=== PATIENT | male | born 1985 | race Caucasian/White ===

== ENCOUNTER 2017-01-11 19:27 | Emergency (ER) | payer MEDICAID ==
[~2017-01-11] VITALS: Ht 182.9 cm; Wt 78.5 kg
[2017-01-11 19:41] VITALS: Ht 182.9 cm; Wt 78.5 kg
--- NOTE | 2017-01-11 20:26 | ERD ---
ER Documentation Chief Complaint Date/Time DATE: 01/11/17 TIME: 20:21 Chief Complaint fever and CHARLETTE foot swelling x 3 days. +cough, runny nose HPI 31-year-old male who presents emergency department for multiple complaints including productive cough and congestion for about 3 days. Also complains of bilateral lower extremity nontraumatic swelling and pain that is increased in about a week. Denies headache, loss of consciousness, dizziness, blurry vision, changes in vision, photophobia, facial pain, ear pain, throat pain, difficulty swallowing, neck pain, shoulder pain, chest pain,hemoptysis, abdominal pain, back pain, loss of appetite, nausea, vomiting, hematochezia, diarrhea, constipation, urinary symptoms, bladder and bowel incontinences, extremity weakness, numbness or tingling sensation, difficulty walking, recent travel, recent exposure to illness, recent antibiotic use in the last 3 months. Allergy: Penicillin. PMH: Denies. Medications: Denies. Surgery: Denies. Family history: Denies. Primary Social History: Not working at this time. Denies smoking, use of alcohol, use of illegal drugs. ROS All systems reviewed and are negative except as per history of present illness. Allergies Allergies: Coded Allergies: No Known Allergy (Unverified , 01/11/17) PMhx/Soc Medical and Surgical Hx: pt denies Medical Hx, pt denies Surgical Hx Hx Alcohol Use: Yes (SOCIALLY) Hx Substance Use: No Hx Tobacco Use: No Smoking Status: Never smoker Physical Exam Vitals Vital Signs Date Time Temp Pulse Resp B/P Pulse Ox O2 Delivery O2 Flow Rate FiO2 01/11/17 19:41 97.6 96 20 118/69 98 Physical Exam CONSTITUTIONAL: Well-appearing; well-nourished; in no apparent distress. HEAD: Normocephalic; atraumatic. EYES: Conjunctiva clear, sclera non-icteric, EOM intact. PERRL Ears: Hearing intact. EACs clear, TMs non-bulging, non-inflamed, translucent & mobile, ossicles normal appearance, No obstructions, no erythema, no discharges Nose: No obstructions. No polyps. No external lesions. Mucosa non-inflamed. No external lesions, septum and turbinates normal. No rhinorrhea. No discharges. Frontal sinus is non-tender to palpation. Maxillary sinus is non-tender to palpation. MOUTH: Moist mucous membranes, no lesion, no obstructions, no vesicles, no thrush, patent airway Throat: Uvula in midline. Right tonsil is +1 with no erythema, no exudate. Left tonsil is +1 with no erythema, no exudate. Tolerating secretions well. Good gag reflex. Patent airway. Neck: Supple, without lesions, bruits, or adenopathy. No mass. Thyroid non- enlarged and non-tender to palpation. CHEST: Symmetrical chest. Respirations even and not labored. No retractions noted. CARDIOVASCULAR: Normal S1, S2. RRR. No murmurs, gallops. RESPIRATORY: Normal chest excursion with respiration; breath sounds clear and equal bilaterally; no wheezes, rhonchi, or rales. Breathing even and unlabored. Speaking in clear, full, and complete sentences w/ ease. ABDOMEN: Normal bowel sounds normal. Soft, round, non-distended, non-guarding, no tenderness, no rebound, no organomegaly, no masses, no pulsating abdominal mass. No hernia. No peritoneal signs. : No CVA tenderness. BACK: Symmetrical shoulder. Spine is midline without deformity, tenderness. No evidence of trauma or deformity. PELVIS: Stable pelvis. No evidence of trauma or deformity. MUSCULOSKELETAL: Normal gait and station. No misalignment, asymmetry, crepitation, defects, tenderness, masses, effusions, decreased range of motion, instability, atrophy or abnormal strength or tone in the head, neck, spine, ribs , pelvis or extremities. Bilateral lower extremity nonpitting edema and tenderness bilaterally with mild redness. Bilateral hips are unremarkable and stable. Bilateral knees/ankle/foot has no obvious deformity with good and full range of motion. Circulation and sensation is intact. No neurovascular deficits. NEUROVASCULAR: Distal pulses are present. Pedal pulse are present, equal, and normal. Capillary refills are < 2 seconds. NEUROLOGIC: Alert and oriented x4. Speaks full and clear sentences. Cranial Nerves II-XII normal. Sensation to pain, touch, and proprioception normal. Grossly unremarkable. No neurologic deficits. Romberg test is negative. PSYCHOLOGICAL: The patients mood and manner are appropriate. No hallucinations , delusions. Not SI. Not HI. Has the capacity to decide for self SKIN: Normal for age and ethnicity; warm; dry; good turgor; no apparent lesions or exudates. No rashes, hives, discoloration. Intact. Procedures/MDM Examination: Please see physical examination. Disease process, medical treatment was explained to the patient and family member. They verbalized understanding and agreed with the diagnostic tests, medical treatment, and follow-up care. Radiology: X-ray of the chest Impression: No acute cardiopulmonary abnormality. Ultrasound of the venous lower extremity bilaterally Impression: No evidence of deep vein thrombosis in the lower extremities bilaterally. Re-evaluation: Denies headache, dizziness, blurry vision, neck pain, shoulder pain, chest pain, back pain, abdominal pain, nausea, vomiting. No episode of emesis in the emergency department. Alert and oriented 4. Speaks full and clear sentences. Respirations even and unlabored. Lung sounds clear to auscultation. Active bowel sounds. Ambulatory with steady gait. No neurovascular deficits. No neurological deficits. Consultation: None. Differential diagnosis: Deep vein thrombosis versus cellulitis versus congestive heart failure versus pneumonia versus upper respiratory infection versus sinusitis versus bronchitis Medical decision makin-year-old male who presents emergency department for multiple complaints including productive cough and congestion for about 3 days. Also complains of bilateral lower extremity nontraumatic swelling and pain that is increased in about a week. Patient's complaint, patient's history about his complaint, my physical findings are consistent with my final diagnosis of early cellulitis, bronchitis Medications prescribed are the following: Bactrim. Pro-air. Patient and family member are made aware of the side effects and adverse reactions of the medications prescribed. Instructed on when to seek emergent and medical attention in case allergic/anaphylactic reactions or severe side effects and or adverse reactions to medications. Patient and family member verbalized understanding. Patient instructed Instructed to follow-up with his PCP in 24-48 hours. Instructed to Call 911 for chest pain, shortness of breath. Advised to come back here in ED as soon as possible for severity of symptoms which includes but not limited to: any new symptoms; shortness of breath/difficulty of breathing; cardiovascular changes; severe gastrointestinal symptoms; signs and symptoms of bleeding and or infection; signs of compartment syndrome/neurovascular changes; neurological changes/deficits. Patient and family member verbalized understanding. Upon discharge, patient is alert and oriented x 4, speaks full and clear sentences, denies pain, has no neurological deficits, has no neurovascular deficits, difficulty of breathing. Breathing even and unlabored. Lung sounds are clear to auscultation. Not in distress. Appears comfortable. Ambulatory with steady gait. Appears satisfied with care provided here in ED. Departure Diagnosis: Primary Impression: Cellulitis Additional Impression: Acute bronchitis Condition: Stable Additional Instructions: Instructed to follow-up with his PCP in 24-48 hours. Instructed to Call 911 for chest pain, shortness of breath. Advised to come back here in ED as soon as possible for severity of symptoms which includes but not limited to: any new symptoms; shortness of breath/difficulty of breathing; cardiovascular changes; severe gastrointestinal symptoms; signs and symptoms of bleeding and or infection; signs of compartment syndrome/neurovascular changes; neurological changes/deficits. Patient and family member verbalized understanding. TONY LEWIS Jan 11, 2017 20:26
--- NOTE | 2017-01-11 22:11 | RADRPT ---
PROCEDURE: US venous lower extremities bilaterally. CLINICAL INDICATION: Lower extremity pain and swelling. TECHNIQUE: Sonographic evaluation of the lower extremities with compression, augmentation, and colo r Doppler imaging was performed. COMPARISON: None available. FINDINGS: Right lower extremity: Common femoral vein: Normal flow. Compressible and augmentable. Proximal superficial femoral vein: Normal flow. Compressible and augmentable. Mid superficial femoral vein: Normal flow. Compressible and augmentable. Distal superficial femoral vein: Normal flow. Compressible and augmentable. Popliteal vein: Normal flow. Compressible and augmentable. Calf veins: Normal flow. Left lower extremity: Common femoral vein: Normal flow. Compressible and augmentable. Proximal superficial femoral vein: Normal flow. Compressible and augmentable. Mid superficial femoral vein: Normal flow. Compressible and augmentable. Distal superficial femoral vein: Normal flow. Compressible and augmentable. Popliteal vein: Normal flow. Compressible and augmentable. Calf veins: Normal flow. IMPRESSION: 1. No evidence of deep vein thrombosis in the lower extremities bilaterally. RPTAT: HLBP .Melchor Gifford MD, MD Date Time Electronically viewed and signed by .Melchor Gifford MD, MD on 01/11/2017 22:10 .P/
--- NOTE | 2017-01-11 22:13 | RADRPT ---
PROCEDURE: X-ray Chest. CLINICAL INDICATION: Cough. TECHNIQUE: PA and lateral chest x-ray. COMPARISON: None available. FINDINGS: The cardiomediastinal silhouette is within normal limits. The lungs are clear without fo shira consolidation, effusion, or pneumothorax. There are no acute osseous abnormalities. IMPRESSION: 1. No acute cardiopulmonary abnormality. RPTAT: HLBP .Melchor Gifford MD, MD Date Time Electronically viewed and signed by .Melchor Gifford MD, on 01/11/2017 22:13 .P/
[2017-01-11] MEDS ORDERED: ALBU8.5H3 INH (22:29)
[2017-01-11] MEDS ORDERED: SULF1TAB31 PO (22:29)
[2017-01-11 22:41] VITALS: BP 112/67; PULSE 78; RESP 18
== END 2017-01-11 22:43 | disposition home or self-care (01) ==
LOC: FTE 19:27
DX: L03.116 Cellulitis of left lower limb (principal); L03.115 Cellulitis of right lower limb; J20.9 Acute bronchitis, unspecified
CPT/HCPCS: 71020; 93970; Z7502